=== PATIENT | female | born 1940 | race Hispanic/Latino ===

== ENCOUNTER 2018-02-06 22:50 | Emergency (ER) | payer MEDICARE, SELFPAY ==
[2018-02-06 22:56] VITALS: BP 171/89; PULSE 107; RESP 20; TEMP 36.6; O2SAT 99; BMI 19.4
--- NOTE | 2018-02-06 23:40 | DI.CT.S_ITS ---
PROCEDURE: CT HEAD/BRAIN WO CON INDICATIONS: visual change TECHNIQUE: Noncontrast 4.5 mm thick angled axial sections acquired from the foramen magnum to the vertex, with coronal and sagittal reformats. For radiation dose reduction, the following was used: automated exposure control, adjustment of mA and/or kV according to patient size. COMPARISON: [facility], CT, HEAD WITHOUT CONTRAST, 03/12/2010, 21:34. FINDINGS: Image quality: Excellent. CSF spaces: Basal cisterns are patent. No extra-axial fluid collections. The ventricles are symmetric in size and shape. Brain: No intracranial bleeds or masses. There is cerebral volume loss for age, with resultant ventricular and sulcal prominence. There are periventricular and deep white matter chronic small vessel ischemic changes. There is intracranial internal carotid artery atherosclerosis. Skull and face: Calvarium and visualized facial bones appear intact, without suspicious lesions. Sinuses: Visualized sinuses and mastoids are clear. IMPRESSION: Normal for age, source of current symptoms is not seen. Dictated by: Gerry Dao M.D. on 02/07/2018 at 8:07 Approved by: Gerry Dao M.D. on 02/07/2018 at 8:07
--- NOTE | 2018-02-07 02:34 | ED.EYEPROB ---
HPI - Eye Problem General Chief complaint: Eye Problems Stated complaint: SENATION CHANGES IN EYES Time Seen by Provider: 02/06/18 22:56 Source: patient Mode of arrival: ambulatory Limitations: no limitations History of Present Illness HPI Narrative: Patient presents to the emergency department today with her daughter and a chief complaint of a brief episode of a visual disturbance a few hours prior to arrival. She describes a vision change that was as if she were focusing along the camera lens. She denies any eye pain or double vision. She states that it lasted approximately 1 min and she has had 1 episode previously a few days ago. She denies other neurologic symptoms such as numbness, tingling or weakness. She has no trouble with speech or her thought process. She has been ambulating without difficulty. She discussed the case with the on-call provider for her primary care doctor who suggested she be evaluated in the emergency department chief complaint: vision change Onset (ago): hour(s) Onset description: sudden Duration: now resolved Location: both eyes Eye Symptoms: decreased vision Place: home Related Data Home Medications Medication Instructions Recorded Confirmed AMLODIPINE BESYLATE (NORVASC) 2.5 mg PO Q DAY #0 03/12/10 ASPIRIN (Aspirin Low Dose) 81 mg PO Q DAY #0 03/12/10 Simvastatin (Zocor) 20 mg PO HS #0 03/12/10 Previous Rx's Medication Instructions Recorded nitrofurantoin monohyd/m-cryst 100 mg PO BID 7 Days #0 cap 10/08/16 [Macrobid] phenazopyridine [Pyridium] 200 mg PO TID 3 Days #0 tab 10/08/16 Allergies Allergy/AdvReac Type Severity Reaction Status Date / Time Penicillins [PENICILLINS] Allergy Unknown Verified 02/06/18 23:09 candesartan [From Atacand] Allergy Verified 02/06/18 23:11 lisinopril Allergy Verified 02/06/18 23:11 SULFA Allergy Mild Rash Uncoded 02/06/18 23:09 ALFALFA VITAMIN Allergy Unknown Uncoded 12/23/17 11:47 ERTHROMYCIN Allergy Unknown Uncoded 12/23/17 11:47 Review of Systems Review of Systems All systems reviewed & are unremarkable except as noted in HPI and below Constitutional Denies chills, Denies fatigue, Denies fever(s), Denies lethargy and Denies weakness Eyes Reports change in vision, Denies eye discharge, Denies irritation and Denies loss of vision ENT Ears, Nose, Mouth, and Throat: Denies change in voice, Denies neck pain and Denies sore throat Cardiovascular Denies dyspnea and Denies dyspnea on exertion Respiratory Denies cough, Denies dyspnea, Denies dyspnea on exertion and Denies wheezing Gastrointestinal Gastrointestinal: Denies abdominal pain, Denies change in bowel habits, Denies diarrhea, Denies nausea and Denies vomiting Genitourinary Denies hematuria, Denies flank pain, Denies urinary incontinence and Denies urinary urgency Musculoskeletal Denies neck pain Integumentary/Breasts Denies pruritus, Denies erythema, Denies rash and Denies wounds Neurologic Denies loss of vision and Denies weakness Endocrine Denies fatigue and Denies flushing Hematologic/Lymphatic Denies easy bruising Allergic/Immunologic Denies wheezing [facility] Social History Smoking Status: Never smoker Exam Initial Vital Signs Initial Vital Signs: Vital Signs Temperature 97.8 F 02/06/18 22:56 Pulse Rate 107 H 02/06/18 22:56 Respiratory Rate 20 02/06/18 22:56 Blood Pressure 171/89 H 02/06/18 22:56 Pulse Oximetry 99 02/06/18 22:56 Const General: cooperative and well developed Nutritional Appearance: well nourished Orientation: alert, awake, oriented x3 and not confused [facility] Head: normocephalic and atraumatic Ears: external ears normal and TM's normal bilaterally Nose: external nose normal and No nasal discharge Face and sinus: sinuses nontender, face symmetric, no sinus tenderness and No dry mucous membranes Mouth: oral mucosae normal and moist mucous membranes Teeth and gingiva: dentition normal Throat: tonsils normal and uvula midline Course Orders Ordered: ED Orders 02/06/18 23:40 CT head/brain wo con Stat Vital Signs - 8 hr 02/06/18 22:56 02/07/18 03:24 Temperature 97.8 F 97.9 F Pulse Rate 107 H 106 H Respiratory Rate 20 18 Blood Pressure 171/89 H 182/91 H Pulse Oximetry 99 98 Discharge Plan Departure Patient Disposition: Home, Self-Care Clinical Impression: Subjective visual disturbance Discharge Date/Time: 02/07/18 03:27 Interventions: ED Discharge Assessment Last Done: 02/07/18 03:24 Instructions: DI for Visual Field Disturbances Activity Restrictions/Additional Instructions: *You have been diagnosed with [ vision disturbance ] *What to do: *Continue to take medications as directed *Follow up with your primary care provider in 2-3 days *Return to ER if you should have any new, worsening or concerning symptoms Prescriptions: No Action AMLODIPINE BESYLATE (NORVASC) 2.5 mg PO Q DAY Qty: 0 RF: 0 ASPIRIN (Aspirin Low Dose) 81 mg PO Q DAY Qty: 0 RF: 0 Simvastatin (Zocor) 20 mg PO HS Qty: 0 RF: 0 nitrofurantoin monohyd/m-cryst [Macrobid] 100 MG capsule 100 mg PO BID 7 Days Qty: 0 RF: 0 phenazopyridine [Pyridium] 200 MG tablet 200 mg PO TID 3 Days Qty: 0 RF: 0
[2018-02-07 03:24] VITALS: BP 182/91; PULSE 106; RESP 18; TEMP 36.6; O2SAT 98
== END 2018-02-07 03:27 | disposition home or self-care (01) ==
PROVIDERS: Emergency Provider Emergency Medicine
DX: H53.10 Unspecified subjective visual disturbances (principal)
CPT/HCPCS: 70450; 99283; 99284

== ENCOUNTER 2019-04-09 14:03 | Emergency (ER) | payer MEDICARE, SELFPAY ==
[2019-04-09 14:15] VITALS: BP 181/96; PULSE 102; RESP 14; O2SAT 98
--- NOTE | 2019-04-09 14:50 | ED.LOWEXIN ---
HPI - Extremity Injury (Lower) <TEODORO Boone - Last Filed: 04/10/19 00:24> General Chief Complaint: Extremity Injury, Lower Stated Complaint: r leg pain/swelling poss from fall week ago Time Seen by Provider: 04/09/19 14:09 Source: patient and family Mode of arrival: ambulatory Limitations: no limitations History of Present Illness HPI Narrative: This is a 78-year-old female, nonsmoker, presents with her daughter with right anterior carney very mild swelling to anterior ankle, spreading redness for last 24 hour. She had tripped and fall about a week ago and had dime-size bruise on affected area initially. Also she was gardening and might have gotten contact with unknown materials and had pruritus symptom and had used [id number] hydrocortisone cream for this. She denies any open skin injuries, excessive scratching on affected site. She denies calf pain, fever, chills, nausea, vomiting, drainage from the site. She denies pain on affected site. However she felt warm but did not have elevated temperature at home. She reports had walked all day a couple of days ago and drove from [employer] to [employer] yesterday. Related Data Home Medications Medication Instructions Recorded Confirmed AMLODIPINE BESYLATE (NORVASC) 2.5 mg PO Q DAY #0 03/12/10 ASPIRIN (Aspirin Low Dose) 81 mg PO Q DAY #0 03/12/10 Simvastatin (Zocor) 20 mg PO HS #0 03/12/10 Previous Rx's Medication Instructions Recorded nitrofurantoin monohyd/m-cryst 100 mg PO BID 7 Days #0 cap 10/08/16 [Macrobid] phenazopyridine [Pyridium] 200 mg PO TID 3 Days #0 tab 10/08/16 doxycycline hyclate 100 mg PO BID 7 Days #14 cap 04/09/19 Allergies Allergy/AdvReac Type Severity Reaction Status Date / Time Sulfa (Sulfonamide Allergy Mild Rash Verified 04/09/19 15:37 Antibiotics) alfalfa Allergy Unknown Verified 04/09/19 15:37 erythromycin base Allergy Unknown Verified 04/09/19 15:37 Penicillins [PENICILLINS] Allergy Unknown Verified 04/09/19 14:15 candesartan [From Atacand] Allergy Verified 04/09/19 14:15 lisinopril Allergy Verified 04/09/19 14:15 Review of Systems <TEODORO Boone - Last Filed: 04/10/19 00:24> Review of Systems General: See HPI. HEENT: Denies sinus pain, ear pain, sore throat, difficulty swallowing, dizziness. Respiratory: Denies dyspnea, cough, wheezing, hemoptysis, sputum. Cardiovascular: Denies chest pain, palpitations, orthopnea, edema. Gastrointestinal: Denies nausea, vomiting, abdominal pain, diarrhea, constipation, melena. : Denies dysuria, frequency, incontinence, hematuria, urinary retention. Musculoskeletal: Denies weakness, calf pain or swelling, joint pain or bony pain. Skin: See HPI Neurologic: Denies weakness, headache, numbness, change in speech, confusion, seizures, incoordination. Psychiatric: No concerning psychosocial issues. 12-point review of systems is negative except for those stated above. PFSH <TEODORO Boone - Last Filed: 04/10/19 00:24> Medical History (Updated 04/10/19 @ 00:10 by TEODORO Boone) Hyperlipidemia (Acute) UTI (urinary tract infection) (Acute) HTN (hypertension) (Resolved) Social History Smoking Status: Never smoker Social History Smoking Status: Never smoker Exam <TEODORO Boone - Last Filed: 04/10/19 00:24> Narrative Exam Narrative: GEN: Alert, oriented x 3, well appearing and nourished, and in no acute distress. Head: Normal cephalic, atraumatic. No scalp or temporal tenderness, palpable mass or rash. EYES: Pupils are equal, round, and reactive to light and accommodation. Extraocular muscles are intact bilaterally. There is no subconjunctival hemorrhage, exudate and sclera non-icteric. ENT: Bilateral auditory canals and tympanic membranes. Hearing grossly intact. Nose without bleeding, purulent discharge, septal hematoma or deviation. Turbinate without erythema or swelling. Facial sinuses nontender to palpate. Mucous membrane moist, no mucosal lesion. Throat without erythema, tonsillar hypertrophy or exudate. Uvula in midline, airway patent. Neck: Trachea in midline. No JVD, non-tender without lymphadenopathy. No masses or thyroid megaly. Supple, non-tender and meningeal signs. CARDIAC: Normal regular rate and rhythm without murmurs, gallops, or rubs. No chest wall tenderness. No peripheral edema, cyanosis or pallor. Capillary refill is less than 2 seconds. RESPIRATORY: Lungs are cleat to auscultate bilaterally. No cough, wheezes, rales, or rhonchi. No stridor, respiratory distress, increase work of breathing, or accessary muscle used. ABD: Abdomen soft, nontender and non-distended. No guarding or rebound tenderness to palpate. Bowel sounds are normal in all 4 quadrants. There is no palpable masses or organomegaly. EXT: Full painless ROM of all extremities with no loss of sensation, strength, effusion or very mild swelling to R lower leg. SKIN: Bright red patch on R carney approx. in 5 cm to R lower leg and warmth. No obvious open skin noted. BACK: Nontender without deformity or crepitance. No flank tenderness. NEUROLOGICAL: Alert and oriented to place, time and person. Sensation and motor function intact bilaterally. No facial droops, dysphasia. PSYCHIATRIC: Good judgement and reason, without hallucinations, abnormal affect or abnormal behaviors during the examination. Patient is not suicidal. Initial Vital Signs Initial Vital Signs: Vital Signs Pulse Rate 102 H 04/09/19 14:15 Respiratory Rate 14 04/09/19 14:15 Blood Pressure 181/96 H 04/09/19 14:15 Pulse Oximetry 98 04/09/19 14:15 <Gloria Viramontes DO - Last Filed: 04/14/19 08:03> Initial Vital Signs Initial Vital Signs: Vital Signs Pulse Rate 102 H 04/09/19 14:15 Respiratory Rate 14 04/09/19 14:15 Blood Pressure 181/96 H 04/09/19 14:15 Pulse Oximetry 98 04/09/19 14:15 Course <TEODORO Boone - Last Filed: 04/10/19 00:24> Orders Ordered: Discontinued Medications Doxycycline Hyclate (Vibramycin) 100 mg PO NOW ONE Stop: 04/09/19 15:25 Last Admin: 04/09/19 15:54 Dose: 100 mg Lidocaine/Sodium Bicarbonate (Buffered Lidocaine 10 Ml Syr) 10 ml INJ NOW ONE Stop: 04/09/19 15:41 Last Admin: 04/09/19 16:02 Dose: Not Given Vital Signs - 8 hr 04/09/19 16:27 Pulse Rate 76 Blood Pressure [Right Arm] 146/76 H Pulse Oximetry 98 <Gloria Viramontes DO - Last Filed: 04/14/19 08:03> Orders Ordered: Discontinued Medications Doxycycline Hyclate (Vibramycin) 100 mg PO NOW ONE Stop: 04/09/19 15:25 Last Admin: 04/09/19 15:54 Dose: 100 mg Lidocaine/Sodium Bicarbonate (Buffered Lidocaine 10 Ml Syr) 10 ml INJ NOW ONE Stop: 04/09/19 15:41 Last Admin: 04/09/19 16:02 Dose: Not Given Vital Signs - 8 hr 04/09/19 16:27 Pulse Rate 76 Blood Pressure [Right Arm] 146/76 H Pulse Oximetry 98 [facility] - Extremity Injury (Lower) <Vijay Conrad-JeysonTEODORO allen - Last Filed: 04/10/19 00:24> Differential Diagnosis Likely other (cellulitis, contusion) Medical Records Attestation: I reviewed the patient's medical records. [facility] Narrative Medical decision making narrative: This is a 78 year old, appears to be younger than her stated age, presents with right carney increasing redness and mild swelling. She did not endorsed constitutional symptoms or pain. The right lower leg around that erythematous region felt very mildly warm to touch. Patient was concerned for blood clots and patient was explained that her redness and swelling is an anterior she and he is very unlikely to have DVT. Also her symptoms does not endorses such as pain. Patient was explained this may be due to early signs of skin infection per clinical findings such as spreading redness, mild swelling, mild warmth to touch. Patient was given options to monitor for worsening symptoms since this may be due to the bruise traveling down to her lower legs where she had injured 7 days ago due to gravity. The patient and daughter requested to be evaluated by position since the triage nurse over the phone at [facility] instructed the patient to be evaluated by ED physician. ED attending physician, Dr. Viramontes, was consulted and patient was evaluated by as well. Patient agrees to start on antibiotic medication but he expressed the apprehension on taking an antibitoic medication at home since she has several known drug allergies to antibiotics medications such as sulfa, erythromycin. Decided to medicate the patient with 1st dose of doxycycline here in the ED and monitor her for 30 minutes 4 before deciding to home. The patient and daughter had several questions on the plan of treatment. All questions were answered and the patient and the daughter agrees with plan of care. Patient was advised to complete a 7 day course of antibiotic medication and to follow up with primary care provider. Red flag symptoms such as increase in pain/redness/warth, fever, chills, chest pain, difficulty breathing, feeling like fainting. Discharge Plan Departure Patient Disposition: Home Clinical Impression: Cellulitis Qualifiers: Site of cellulitis: extremity Site of cellulitis of extremity: lower extremity Laterality: right Qualified Code(s): L03.115 - Cellulitis of right lower limb Discharge Date/Time: 04/09/19 16:48 Interventions: ED Discharge Assessment Last Done: 04/09/19 16:41 Instructions: DI for Cellulitis -- Adult Activity Restrictions/Additional Instructions: You have been diagnosed with [ early cellulitis ]. What to do: *Take your medications as directed. Please complete a full course of antibiotic medications once you start. *Follow up with your primary care provider, DR Huerta at [facility] in 2-3 days, call for an appointment. Let them know you were seen in the ED and that we asked you to be seen in follow up. *Return to ED if you have any new, worsening, or concerning symptoms, such as [increasing redness, pain, fever, warmth to touch, prolonged discharge, chest pain, breathing difficulty, any acute concerning problems]. Prescriptions: New doxycycline hyclate 100 mg capsule 100 mg PO BID 7 Days Qty: 14 RF: 0 No Action AMLODIPINE BESYLATE (NORVASC) 2.5 mg PO Q DAY Qty: 0 RF: 0 ASPIRIN (Aspirin Low Dose) 81 mg PO Q DAY Qty: 0 RF: 0 Simvastatin (Zocor) 20 mg PO HS Qty: 0 RF: 0 nitrofurantoin monohyd/m-cryst [Macrobid] 100 MG capsule 100 mg PO BID 7 Days Qty: 0 RF: 0 phenazopyridine [Pyridium] 200 MG tablet 200 mg PO TID 3 Days Qty: 0 RF: 0 <Gloria Viramontes DO - Last Filed: 04/14/19 08:03> Cosign ED Attending Lindaature Attestation: I was immediately available in the department for consultation. Documentation has been reviewed. I agree with assessment and plan.
[2019-04-09] MEDS: DOXYCYCLINE HYCLATE 100 MG TABLET PO (15:54)
[2019-04-09 16:27] VITALS: BP 146/76; PULSE 76; O2SAT 98
== END 2019-04-09 16:48 | disposition home or self-care (01) ==
PROVIDERS: Emergency Provider Nurse Practitioner Family
DX: L03.115 Cellulitis of right lower limb (principal); W01.0XXA Fall on same level from slipping, tripping and stumbling without subsequent striking against object, initial encounter
CPT/HCPCS: 99282; 99283